=== PATIENT | male | born 1975 | race Caucasian/White ===

== ENCOUNTER 2017-06-19 13:37 | Emergency (ER) | payer BC, SELFPAY ==
[2017-06-19 13:39] VITALS: BP 130/90; PULSE 56; RESP 18; TEMP 36.6; O2SAT 100; BMI 26.8
--- NOTE | 2017-06-19 14:59 | EKG12_ITS ---
Test Reason : HEADACHE Blood Pressure : / mmHG Vent. Rate : 053 BPM Atrial Rate : 053 BPM P-R Int : 216 ms QRS Dur : 098 ms QT Int : 434 ms P-R-T Axes : 058 039 057 degrees QTc Int : 407 ms Sinus bradycardia with marked sinus arrhythmia with 1st degree A-V block Otherwise normal ECG Confirmed by PALMIRA CROWLEY, LISA ([id number]), map editor LAW LUKE ([id number]) on 06/23/2017 2:11:16 PM Referred By: MIRELA Confirmed By:LISA CHAVIS MD
--- NOTE | 2017-06-19 15:00 | RAD_ITS ---
STUDY: X-RAY CHEST REASON FOR EXAM: Male, 42 years old. Vertigo and chest pain. TECHNIQUE: PA and lateral views of the chest. COMPARISON: Comparison is made with prior study dated November 11, 2014. FINDINGS: EKG electrodes are seen. The lungs are clear and expanded. There is no demonstrated pleural abnormality. Normal size heart. Normal mediastinum and nixon. Normal visualized pulmonary arteries. Normal visualized aortic arch and descending thoracic aorta. Normal visualized thoracic spine. Normal visualized ribs, clavicles, and shoulders. There is no demonstrated abnormality of the visualized soft tissue structures of the upper abdomen. RAD/Chest PA and Lateral IMPRESSION: Normal x-ray examination of the chest. Electronically Signed: Abebe Antoine MD at 15:43 EDT Tel [phone], Service support ,
--- NOTE | 2017-06-19 15:00 | CT_ITS ---
STUDY: CT BRAIN WITHOUT CONTRAST REASON FOR EXAM: Male, 42 years old. Intermittent headaches. Vertigo and diplopia. RADIATION DOSAGE (If Supplied By Facility): CTDIvol = ( 44.99 ) mGy, DLP = ( 812.98 ) mGycm TECHNIQUE: Transaxial CT imaging of the brain was performed without administration of intravenous contrast material. Individualized dose optimization techniques were used for this CT. COMPARISON: Comparison is made with prior study dated September 19, 2011. FINDINGS: Normal soft tissue structures. Normal calvarium. Normal size ventricles and extra-axial spaces for the patient's age. Normal white matter tracts of the cerebral hemispheres. Normal basal ganglia and thalami. Normal brainstem. Normal cerebellum. There is no intracranial hemorrhage. There are no findings of an acute ischemic infarction. Mucosal polyp or retention cyst at the base of the left maxillary sinus. CT/Brain/Head without Contrast IMPRESSION: Normal unenhanced CT scan of the brain. Electronically Signed: Abebe Antoine MD at 15:40 EDT Tel [phone], Service support ,
--- NOTE | 2017-06-19 15:01 | ED.VIS.GEN ---
History of Present Illness <Terrell Gibsono - Last Filed: 06/19/17 21:07> Informant: Patient Onset: Days - 2 Context: Gradual Onset Quality: feels like movement, like room is diagonal Location: head Current Severity: Mild Maximum Severity: Moderate Worsened by: being upright and ambulatory Relieved by: sitting at rest Associated Symptoms: numbness R side of face, including forehead; intermittent ESCALONA; fatigue Narrative: Patient has never had these symptoms before. He also complains that he is having diplopia. He denies any eye pain or loss of vision. No recent cold/URI. No ear pain, decreased hearing, or tinnitus. No recent head injuries. He travels a lot, recently had a trip to and from [place] and [place]. Denies any focal lower extremity pain or swelling, no history of a DVT or PE, but as he was lying in the ED for examiner to enter the room, he started having central chest throbbing that he has not had in the last few days. He denies any dyspnea. Taking a deep breath makes it a little worse. It does not radiate. Feeling a little disoriented last couple days and foggy in head. <Francesco Cartwright - Last Filed: 06/21/17 08:10> Chief Complaint: General Illness Past Medical History <GibsonCornelius - Last Filed: 06/19/17 21:07> Surgical History: - - GERD Smoking Status: Never smoker Alcohol: None Drugs: None <Francesco Cartwright - Last Filed: 06/21/17 08:10> - Allergies and Home Meds Allergies/Adverse Reactions: Allergies No Known Allergies Allergy (Verified 06/19/17 13:38) Home Medications: Home Medications Medication Instructions Recorded Lansoprazole [Prevacid] 30 mg PO DAILY 12/27/13 Meclizine HCl 25 mg PO Q8H PRN #16 tab 06/19/17 Primary Care Physician: Nya Acevedo MD [Primary Care Provider] - Jake Nobles MD [STAFF PHYSICIAN] - 1 Week if not improving Review of Systems All systems negative except as indicated General: Reports: Malaise. Denies: Fever, Sweats Eyes: Reports: Diplopia ENT: Denies: Bilateral ear pain, Rhinorrhea, Sore throat Cardiovascular: Reports: Chest pain. Denies: Palpitations, Heart racing Respiratory: Denies: Dyspnea, Cough Gastrointestinal: Denies: Abdominal pain, Nausea, Vomiting Skin: Denies: Rash Neurological: Reports: Headache - off and on mild pressure ESCALONA, Numbness, - - no trouble speaking or understanding others. feeling disoriented in past 2 days as well.. Denies: Weakness <Francesco Cartwright - Last Filed: 06/21/17 08:10> Physical Exam Vital Signs/Narrative: Vital Signs Pulse Resp Pulse Ox 06/19/17 18:11 71 16 99 <ArthurCornelius - Last Filed: 06/19/17 21:07> Vital Signs/Narrative: Vital Signs Temp Pulse Resp BP Pulse Ox 06/19/17 13:39 97.9 F 56 L 18 130/90 H 100 General: Well nourished, Well developed, - - well-appearing nad Head: Normocephalic, Atraumatic Eyes: Perrl, EOMI - w/o nystagmus ENT: Moist mucous membranes, No rhinorrhea, TM's clear Neck: Supple, Nontender, No lymphadenopathy, No JVD Cardiovascular: Regular rate, Regular rhythm, No murmurs Respiratory: No distress, CTA bilaterally, Chest nontender Abdomen: Soft, Nontender, Nondistended, Normal bowel sounds Back: Nontender, Normal Inspection Extremities: Nontender, No edema Skin: Normal color, No rash Neurological: Alert, Oriented x3, Cranial nerves II-XII grossly intact - except sensory exam -- see below, Normal Strength, Normal DTR - toes downgoing bilaterally. no clonus., Normal Gait, - - normal FTN and HTS bilaterally.. Negative for: Normal Sensation - subjectively decreased sensation on right side of face, all 3 divisions of trigem nerve regions. grossly, sensation is intact., Left side facial droop, Right side facial droop Psychological: Normal affect <Francesco Cartwright - Last Filed: 06/21/17 08:10> Diagnostic/Tx/Re-eval - Medical Decision Making MRI of the brain was interpreted by radiologist as normal. Based on discussion Dr. Parker had with neurology if MRI negative he may be discharged to home to follow-up as an outpatient. <ArthurCornelius - Last Filed: 06/19/17 21:07> Chest X-Ray - ED: 2 View, Read by ED Physician Impressions Brain CT 06/19/17 15:00 IMPRESSION: Normal unenhanced CT scan of the brain. Electronically Signed: Abebe Antoine MD at 15:40 EDT Tel [phone], Service support , Chest X-Ray 06/19/17 15:00 IMPRESSION: Normal x-ray examination of the chest. Electronically Signed: Abebe Antoine MD at 15:43 EDT Tel [phone], Service support , Chest CTA 06/19/17 16:29 IMPRESSION: Normal CTA chest examination, without a demonstrated pulmonary embolism or arterial dissection. Electronically Signed: Piero Ren MD at 17:41 EDT , Service support , 06/19/17 15:00 Brain/Head without Contrast [CT] Stat Chest PA and Lateral [RAD] Stat 06/19/17 16:29 CTA Chest W/WO Contrast [CT] Stat Laboratory Results 06/19/17 06/19/17 06/19/17 Range/Units 15:15 15:15 15:15 WBC 8.6 (4.4-11.0) K/mm3 RBC 5.27 (4.6-6.2) M/mm3 Hgb 16.1 (13.0-16.5) g/dl Hct 45.7 (40-54) % MCV 86.7 (80-94) fL MCH 30.6 (27.0-32.0) pg MCHC 35.2 (32-36) g/gl RDW 13.5 (11.6-14.6) % RDW Differential 42.9 (35.1-43.9) fl Plt Count 314 (150-450) K/mm3 MPV 9.4 (6.2-12.0) fl Immature Gran % (Auto) 0.200 (0.0-0.9) % Neut % (Auto) 65.5 (47-70) % Lymph % (Auto) 22.9 (19-41) % [place] % (Auto) 8.0 (0-10) % Eos % (Auto) 2.8 (0-5) % Baso % (Auto) 0.6 (0-1) % Absolute Neuts (auto) 5.6 (2.0-7.7) X10^3/uL Absolute Lymphs (auto) 1.97 (0.83-4.51) X10^3/ul Total Counted Not Reportable D-Dimer Quant (PE/DVT) 0.73 H* (0.27-0.49) FEU/ug/m Sodium 137 (136-145) mmol/L Potassium 3.8 (3.5-5.1) mmol/L Chloride 104 (98-107) mmol/L Carbon Dioxide 28.0 (21.0-32.0) mmol/L Anion Gap 5 (5-15) BUN 16 (7-18) mg/dL Creatinine 1.03 (0.70-1.30) mg/dL Estim Creat Clear Calc 107.74 ml/min Est GFR (MDRD) Af Amer 103 (>60) mL/min Est GFR (MDRD) Non-Af 85 (>60) mL/min BUN/Creatinine Ratio 15.5 (10-20) RATIO Glucose 91 (74-106) mg/dL Calcium 9.1 (8.5-10.1) mg/dL Troponin I < 0.015 (<0.045) ng/mL - Rhythm Strip Rhythm Strip: Sinus Rhythm Rate: 55 Ectopy: None - EKG 1 Interpretation: Sinus Rhythm - 53, No Acute Injury Pattern - normal axis, normal EKG - Medical Decision Making Prior to getting any medications, his chest discomfort is resolved. He states he rested/napped, and his head symptoms are a little better also, but still present. His d-dimer is elevated; CTA chest performed and negative for PE or other acute abnormality. Meclizine and IVFB given. On reevaluation, he states the symptoms are significantly better. Discussed w/ Neurology, who recommends MRI brain w/o contrast, to make sure he is not having a brainstem ischemic event. If negative, d/c home w/ close outpatient follow up would be appropriate. Discussed w/ pt and MRI, who is still here and able to perform a STAT exam, which is ordered. Checked out to oncoming ED physician for MRI results and discussed w/ pt, who is comfortable w/ this plan. <Francesco Cartwright - Last Filed: 06/21/17 08:10> Disposition: Home <Cornelius Gibson - Last Filed: 06/19/17 21:07> ED Disposition <Cornelius Gibson - Last Filed: 06/19/17 21:07> <Francesco Cartwright - Last Filed: 06/21/17 08:10> - Plan for ED Patient: Disposition: Home or Assisted Living Chief Complaint: General Illness Diagnosis: Vertigo, Numbness and tingling of right face, Chest pain, unspecified Instructions: ED Vertigo Unspecified Prescriptions: Meclizine HCl 25 mg PO Q8H PRN #16 tab PRN Reason: Vertigo Referrals: Nya Acevedo MD [Primary Care Provider] - Jake Nobles MD [STAFF PHYSICIAN] - 1 Week if not improving
--- NOTE | 2017-06-19 15:11 | ED.DCSUM_ITS ---
History of Present Illness <Terrell Gibsono - Last Filed: 06/19/17 21:07> Informant: Patient Onset: Days - 2 Context: Gradual Onset Quality: feels like movement, like room is diagonal Location: head Current Severity: Mild Maximum Severity: Moderate Worsened by: being upright and ambulatory Relieved by: sitting at rest Associated Symptoms: numbness R side of face, including forehead; intermittent ESCALONA; fatigue Narrative: Patient has never had these symptoms before. He also complains that he is having diplopia. He denies any eye pain or loss of vision. No recent cold/ URI. No ear pain, decreased hearing, or tinnitus. No recent head injuries. He travels a lot, recently had a trip to and from [place] and [place]. Denies any focal lower extremity pain or swelling, no history of a DVT or PE, but as he was lying in the ED for examiner to enter the room, he started having central chest throbbing that he has not had in the last few days. He denies any dyspnea. Taking a deep breath makes it a little worse. It does not radiate. Feeling a little disoriented last couple days and foggy in head. <Francesco Cartwright - Last Filed: 06/21/17 08:10> Chief Complaint: General Illness Past Medical History <GibsonCornelius - Last Filed: 06/19/17 21:07> Surgical History: - - GERD Smoking Status: Never smoker Alcohol: None Drugs: None <Francesco Cartwright - Last Filed: 06/21/17 08:10> - Allergies and Home Meds Allergies/Adverse Reactions: Allergies No Known Allergies Allergy (Verified 06/19/17 13:38) Home Medications: Home Medications Medication Instructions Recorded Lansoprazole [Prevacid] 30 mg PO DAILY 12/27/13 Meclizine HCl 25 mg PO Q8H PRN #16 tab 06/19/17 Primary Care Physician: Nya Acevedo MD [Primary Care Provider] - Jake Nobles MD [STAFF PHYSICIAN] - 1 Week if not improving Review of Systems All systems negative except as indicated General: Reports: Malaise. Denies: Fever, Sweats Eyes: Reports: Diplopia ENT: Denies: Bilateral ear pain, Rhinorrhea, Sore throat Cardiovascular: Reports: Chest pain. Denies: Palpitations, Heart racing Respiratory: Denies: Dyspnea, Cough Gastrointestinal: Denies: Abdominal pain, Nausea, Vomiting Skin: Denies: Rash Neurological: Reports: Headache - off and on mild pressure ESCALONA, Numbness, - - no trouble speaking or understanding others. feeling disoriented in past 2 days as well.. Denies: Weakness <Francesco Cartwright - Last Filed: 06/21/17 08:10> Physical Exam Vital Signs/Narrative: Vital Signs Pulse Resp Pulse Ox 06/19/17 18:11 71 16 99 <ArthurCornelius - Last Filed: 06/19/17 21:07> Vital Signs/Narrative: Vital Signs Temp Pulse Resp BP Pulse Ox 06/19/17 13:39 97.9 F 56 L 18 130/90 H 100 General: Well nourished, Well developed, - - well-appearing nad Head: Normocephalic, Atraumatic Eyes: Perrl, EOMI - w/o nystagmus ENT: Moist mucous membranes, No rhinorrhea, TM's clear Neck: Supple, Nontender, No lymphadenopathy, No JVD Cardiovascular: Regular rate, Regular rhythm, No murmurs Respiratory: No distress, CTA bilaterally, Chest nontender Abdomen: Soft, Nontender, Nondistended, Normal bowel sounds Back: Nontender, Normal Inspection Extremities: Nontender, No edema Skin: Normal color, No rash Neurological: Alert, Oriented x3, Cranial nerves II-XII grossly intact - except sensory exam -- see below, Normal Strength, Normal DTR - toes downgoing bilaterally. no clonus., Normal Gait, - - normal FTN and HTS bilaterally.. Negative for: Normal Sensation - subjectively decreased sensation on right side of face, all 3 divisions of trigem nerve regions. grossly, sensation is intact. , Left side facial droop, Right side facial droop Psychological: Normal affect <Francesco Cartwright - Last Filed: 06/21/17 08:10> Diagnostic/Tx/Re-eval - Medical Decision Making MRI of the brain was interpreted by radiologist as normal. Based on discussion Dr. Parker had with neurology if MRI negative he may be discharged to home to follow-up as an outpatient. <ArthurCornelius - Last Filed: 06/19/17 21:07> Chest X-Ray - ED: 2 View, Read by ED Physician Impressions Brain CT 06/19/17 15:00 IMPRESSION: Normal unenhanced CT scan of the brain. Electronically Signed: Abebe Antoine MD at 15:40 EDT Tel [phone], Service support , Chest X-Ray 06/19/17 15:00 IMPRESSION: Normal x-ray examination of the chest. Electronically Signed: Abebe Antoine MD at 15:43 EDT Tel [phone], Service support , Chest CTA 06/19/17 16:29 IMPRESSION: Normal CTA chest examination, without a demonstrated pulmonary embolism or arterial dissection. Electronically Signed: Piero Ren MD at 17:41 EDT , Service support , 06/19/17 15:00 Brain/Head without Contrast [CT] Stat Chest PA and Lateral [RAD] Stat 06/19/17 16:29 CTA Chest W/WO Contrast [CT] Stat Laboratory Results 06/19/17 06/19/17 06/19/17 Range/Units 15:15 15:15 15:15 WBC 8.6 (4.4-11.0) K/mm3 RBC 5.27 (4.6-6.2) M/mm3 Hgb 16.1 (13.0-16.5) g/dl Hct 45.7 (40-54) % MCV 86.7 (80-94) fL MCH 30.6 (27.0-32.0) pg MCHC 35.2 (32-36) g/gl RDW 13.5 (11.6-14.6) % RDW Differential 42.9 (35.1-43.9) fl Plt Count 314 (150-450) K/mm3 MPV 9.4 (6.2-12.0) fl Immature Gran % (Auto) 0.200 (0.0-0.9) % Neut % (Auto) 65.5 (47-70) % Lymph % (Auto) 22.9 (19-41) % [place] % (Auto) 8.0 (0-10) % Eos % (Auto) 2.8 (0-5) % Baso % (Auto) 0.6 (0-1) % Absolute Neuts (auto) 5.6 (2.0-7.7) X10^3/uL Absolute Lymphs (auto) 1.97 (0.83-4.51) X10^3/ul Total Counted Not Reportable D-Dimer Quant (PE/DVT) 0.73 H* (0.27-0.49) FEU/ug/m Sodium 137 (136-145) mmol/L Potassium 3.8 (3.5-5.1) mmol/L Chloride 104 (98-107) mmol/L Carbon Dioxide 28.0 (21.0-32.0) mmol/L Anion Gap 5 (5-15) BUN 16 (7-18) mg/dL Creatinine 1.03 (0.70-1.30) mg/dL Estim Creat Clear Calc 107.74 ml/min Est GFR (MDRD) Af Amer 103 (>60) mL/min Est GFR (MDRD) Non-Af 85 (>60) mL/min BUN/Creatinine Ratio 15.5 (10-20) RATIO Glucose 91 (74-106) mg/dL Calcium 9.1 (8.5-10.1) mg/dL Troponin I < 0.015 (<0.045) ng/mL - Rhythm Strip Rhythm Strip: Sinus Rhythm Rate: 55 Ectopy: None - EKG 1 Interpretation: Sinus Rhythm - 53, No Acute Injury Pattern - normal axis, normal EKG - Medical Decision Making Prior to getting any medications, his chest discomfort is resolved. He states he rested/napped, and his head symptoms are a little better also, but still present. His d-dimer is elevated; CTA chest performed and negative for PE or other acute abnormality. Meclizine and IVFB given. On reevaluation, he states the symptoms are significantly better. Discussed w/ Neurology, who recommends MRI brain w/o contrast, to make sure he is not having a brainstem ischemic event. If negative, d/c home w/ close outpatient follow up would be appropriate. Discussed w/ pt and MRI, who is still here and able to perform a STAT exam, which is ordered. Checked out to oncoming ED physician for MRI results and discussed w/ pt, who is comfortable w/ this plan. <Francesco Cartwright - Last Filed: 06/21/17 08:10> Disposition: Home <Cornelius Gibson - Last Filed: 06/19/17 21:07> ED Disposition <Cornelius Gibson - Last Filed: 06/19/17 21:07> <Francesco Cartwright - Last Filed: 06/21/17 08:10> - Plan for ED Patient: Disposition: Home or Assisted Living Chief Complaint: General Illness Diagnosis: Vertigo, Numbness and tingling of right face, Chest pain, unspecified Instructions: ED Vertigo Unspecified Prescriptions: Meclizine HCl 25 mg PO Q8H PRN #16 tab PRN Reason: Vertigo Referrals: Nya Acevedo MD [Primary Care Provider] - Jake Nobles MD [STAFF PHYSICIAN] - 1 Week if not improving
[2017-06-19 15:23] VITALS: PULSE 57
[2017-06-19 15:25] LABS: Absolute Lymphocyte Count 1.97 X10^3/ul (0.83-4.51); Absolute Neutrophil Count 5.6 X10^3/uL (2.0-7.7); Basophil# 0.05 X10^3/uL; Basophil% 0.6 % (0-1); Eosinophil# 0.24 X10^3/uL; Eosinophils% 2.8 % (0-5); Hematocrit 45.7 % (40-54); Hemoglobin 16.1 g/dl (13.0-16.5); Lymphocyte # 1.97 X10^3/ul (4.0); Lymphocyte % 22.9 % (19-41); Mean Corp Hgb Conc 35.2 g/gl (32-36); Mean Corpuscular Hgb 30.6 pg (27.0-32.0); Mean Corpuscular Volume 86.7 fL (80-94); Mean Platelet Vol. 9.4 fl (6.2-12.0); Monocyte# 0.69 X10^3/uL; Neutrophil # 5.62 X10^3/uL (2.7-7.7); Neutrophil % 65.5 % (47-70); Platelet Count 314 K/mm3 (150-450); RBC Distribution Width CV 13.5 % (11.6-14.6); RBC Distribution Width SD 42.9 fl (35.1-43.9); Red Blood Count 5.27 M/mm3 (4.6-6.2); White Blood Count 8.6 K/mm3 (4.4-11.0)
[2017-06-19 15:28] LABS: POSITIVE COUNT NO; POSITIVE DIFFERENTIAL NO; POSITIVE MORPHOLOGY NO
[2017-06-19 15:39] LABS: Anion Gap 5 (5-15); BUN 16 mg/dL (7-18); BUN/Creat Ratio 15.5 RATIO (10-20); Calcium,Total 9.1 mg/dL (8.5-10.1); Chloride 104 mmol/L (98-107); Creatinine, Serum 1.03 mg/dL (0.70-1.30); EST Glomerular Filtration Rate 85 mL/min (>60); Est Glom Filt Rate - Afr Amer 103 mL/min (>60); Estimated Creatinine Clearance 107.74 ml/min; Glucose 91 mg/dL (74-106); Potassium 3.8 mmol/L (3.5-5.1); Sodium Level 137 mmol/L (136-145)
[2017-06-19 15:48] LABS: D-Dimer Quantitative (DVT/PE) 0.73 FEU/ug/m (0.27-0.49)
[2017-06-19 15:56] VITALS: BMI 26.8
--- NOTE | 2017-06-19 16:29 | CT_ITS ---
STUDY: CTA CHEST REASON FOR EXAM: Male, 42 years old. Chest pain. Elevated d-dimer. RADIATION DOSAGE (If Supplied By Facility): CTDIvol = ( 38.46 ) mGy, DLP = ( 625.78 ) mGycm TECHNIQUE: The examination was performed with the intravenous administration of 100 ml of Isovue 300 contrast material. Post-processing of the angiographic images was performed, with multiplanar reformation and 3D reconstruction. Individualized dose optimization techniques were used for this CT. COMPARISON: None. FINDINGS: Normal enhancement of the main pulmonary artery and right and left pulmonary arteries. Normal enhancement of the bilateral peripheral pulmonary arteries. There is no demonstrated pulmonary embolism. Normal thoracic aorta and visualized great vessels. There is no demonstrated aortic dissection. Normal heart and pericardium. Normal mediastinum. Normal hilar regions. Normal visualized trachea and bronchi. The lungs are well expanded. Normal pulmonary parenchyma. Normal pleura. Normal chest wall structures. Normal osseous structures. Normal visualized upper abdomen. CT/CTA Chest W/WO Contrast IMPRESSION: Normal CTA chest examination, without a demonstrated pulmonary embolism or arterial dissection. Electronically Signed: Piero Ren MD at 17:41 EDT , Service support ,
[2017-06-19] MEDS: Meclizine HCl 25 MG Tablet PO (17:06)
[2017-06-19 18:11] VITALS: PULSE 71; RESP 16; O2SAT 99
--- NOTE | 2017-06-19 18:28 | MRI_ITS ---
STUDY: MRI BRAIN WITHOUT CONTRAST REASON FOR EXAM: Male, 42 years old. Right facial numbness and vertigo TECHNIQUE: Standardized multiplanar fat and water weighted pulse sequences were obtained. COMPARISON: CT the brain on June 19, 2017 FINDINGS: Normal size of the ventricles and extra-axial spaces for the patient's age. Normal white matter tracts of the supratentorial brain. Normal bilateral basal ganglia. Normal thalami. There is no extra-axial fluid accumulation. Normal flow voids within the major intracranial circulation suggesting patency by spin echo criteria. Normal sella turcica, pituitary gland, infundibular stalk, optic chiasm and hypothalamus. Normal tectal plate and pineal gland. Normal midbrain, nimo and medulla. Normal cerebellum. Normal basal cisterns. Normal bilateral temporal bones. Normal bilateral internal auditory canals. No demonstrated orbital abnormality, within the constraints of a routine brain study. Polypoid mucosal thickening within left maxillary sinus.. Normal calvarium and skull base. Normal visualized soft tissue structures. Normal visualized upper cervical spine. MRI/Brain without Contrast IMPRESSION: Normal unenhanced MRI of the brain. Left maxillary sinusitis Electronically Signed: Rudy Kirby MD at 19:50 EDT , Service support ,
[2017-06-19 20:10] VITALS: BP 128/77; PULSE 62
[2017-06-19 21:16] VITALS: BP 125/78; PULSE 57; RESP 18; O2SAT 98
== END 2017-06-19 21:27 | disposition home or self-care (01) ==
PROVIDERS: Emergency Provider Emergency Medicine; Family Provider Internal Medicine; PCP Internal Medicine
DX: R42 Dizziness and giddiness (principal); R20.0 Anesthesia of skin; R07.9 Chest pain, unspecified; R20.2 Paresthesia of skin
CPT/HCPCS: 70450; 70551; 71046; 71275; 80048; 84484; 85025; 85379; 93005; 96360; 96361; 99285; J7030; J7050; Q9967; A4216

== ENCOUNTER 2018-06-19 13:47 | Inpatient (IN) | payer BC, SELFPAY ==
[2018-06-19 13:48] VITALS: BP 122/88; PULSE 101; RESP 18; TEMP 36.3; O2SAT 100; BMI 24.2
--- NOTE | 2018-06-19 14:41 | ED.DCSUM_ITS ---
- ER Visit Summary Date of Service: 06/19/18 Chief Complaint: Periumbilical abdominal pain with nausea and vomiting History of Present Illness: The patient is a 43 M past medical history of reflux and prior appendectomy. Patient states this morning he started getting epigastric periumbilical abdominal pain with nausea vomiting. No hematemesis. No melena. No diarrhea. No dysuria. Recently normal bowel movements. No fever. No abdominal trauma. No history of prior pancreatitis or bowel obstructions. Denies any back pain. Physical Examination: Middle-aged male vital signs stable afebrile. H EENT exam unremarkable. Moist with memories. Neck nontender no lymphadenopathy. Lungs clear to auscultation bilaterally. Heart regular rhythm no murmur. Abdomen is soft. Periumbilical and epigastric tenderness. No rebound, guarding or rigidity. Nondistended. No signs of obstruction. Right upper right lower quadrant unremarkable. No Patten sign no McBurney's point tenderness. No hernias or masses. Patient is moving all 4 extremities. Neurovascular intact. No edema. Nontender. Back exam nontender. Neurologically is awake alert with no focal motor or sensory deficits. Test Results: CB C shows a white count of 14. Hemoglobin is 16. No bands. Chemistries unremarkable creatinine 1.3. Liver enzymes normal. Lipase is elevated at 18,561 consistent with acute pancreatitis. CT abdomen pelvis is pending. Emergency Department Course and Treatment: Patient treated with IV fluids. Morphine and Zofran. Repeat exam is feeling and looks much better. Will be given a second dose of morphine. I discussed all test results of both he and his . He will be admitted. Treatment Plan: Admission. Disposition: Admission Impression: Acute abdominal pain secondary to acute pancreatitis This note was generated with [employer] software. It may contain incorrect words, spelling, and punctuation that were not noted in review of the chart prior to signing ED Disposition - Plan for ED Patient: Referrals: Nya Acevedo MD [STAFF PHYSICIAN] -
[2018-06-19] MEDS: Ondansetron 4 MG/2 ML Vial IV (14:44)
[2018-06-19] MEDS: 0.9% Normal Saline 1,000 ML 1000 ML IV (14:44)
[2018-06-19] MEDS: Morphine 4 MG/ML Syringe 6 MG IV (14:46)
[2018-06-19 14:55] LABS: Absolute Lymphocyte Count 1.04 X10^3/ul (0.83-4.51); Absolute Neutrophil Count 12.8 X10^3/uL (2.0-7.7); Basophil# 0.01 X10^3/uL; Basophil% 0.1 % (0-1); Eosinophil# 0.04 X10^3/uL; Eosinophils% 0.3 % (0-5); Hematocrit 47.2 % (40-54); Hemoglobin 16.8 g/dl (13.0-16.5); Lymphocyte # 1.04 X10^3/ul (4.0); Lymphocyte % 7.2 % (19-41); Mean Corp Hgb Conc 35.6 g/gl (32-36); Mean Corpuscular Hgb 30.8 pg (27.0-32.0); Mean Corpuscular Volume 86.6 fL (80-94); Mean Platelet Vol. 9.6 fl (6.2-12.0); Monocyte# 0.53 X10^3/uL; Monocyte% 3.7 % (0-10); Neutrophil # 12.76 X10^3/uL (2.7-7.7); Neutrophil % 88.5 % (47-70); POSITIVE COUNT NO; POSITIVE DIFFERENTIAL NO; POSITIVE MORPHOLOGY NO; Platelet Count 304 K/mm3 (150-450); RBC Distribution Width CV 13.4 % (11.6-14.6); RBC Distribution Width SD 42.4 fl (35.1-43.9); Red Blood Count 5.45 M/mm3 (4.6-6.2); White Blood Count 14.4 K/mm3 (4.4-11.0)
--- NOTE | 2018-06-19 15:09 | ED.RN ---
LAB RESULTED LIPASE 18,561, PHYSICIAN NOTIFIED
[2018-06-19 15:10] LABS: AST(SGOT) 15 U/L (15-37); Alanine Aminotransfer ALT/SGPT 17 U/L (16-61); Albumin, Serum 4.2 g/dL (3.2-5.0); Alkaline Phosphatase 79 U/L (45-117); Anion Gap 8 (5-15); BUN 18 mg/dL (7-18); BUN/Creat Ratio 13.8 RATIO (10-20); Bilirubin, Direct 0.14 mg/dL (0.00-0.30); Calcium,Total 9.2 mg/dL (8.5-10.1); Chloride 105 mmol/L (98-107); EST Glomerular Filtration Rate 65 mL/min (>60); Est Glom Filt Rate - Afr Amer 78 mL/min (>60); Estimated Creatinine Clearance 91.81 ml/min; Globulin 4.6 g/dL (2.2-4.2); Glucose 122 mg/dL (74-106); Lipase 18561 U/L (73-393); Potassium 3.6 mmol/L (3.5-5.1); Protein, Total 8.8 g/dL (6.4-8.2); Sodium Level 138 mmol/L (136-145)
--- NOTE | 2018-06-19 15:17 | CT_ITS ---
STUDY: CT ABDOMEN AND PELVIS WITH CONTRAST REASON FOR EXAM: Male, 43 years old. Pancreatitis. RADIATION DOSAGE (If Supplied By Facility): CTDIvol = ( 15.56 ) mGy, DLP = ( 986.32 ) mGycm TECHNIQUE: Transaxial images were obtained from the dome of the diaphragm to the symphysis pubis without oral contrast. 100ML IV Isovue 300 was administered. Sagittal and coronal images were reconstructed. Individualized dose optimization techniques were used for this CT. COMPARISON: None. FINDINGS: The visualized lung bases are unremarkable. The visualized portions of the heart are within normal limits. There is hepatomegaly with diffuse hepatic enlargement. Normal gallbladder and extrahepatic biliary system. Normal spleen. There is diffuse enlargement of the pancreas with milagros-pancreatic edema suggesting acute pancreatitis. Normal bilateral adrenal glands. Normal right kidney. Normal left kidney. There is a small hiatal hernia. There is ulcer or diverticulum of the duodenum, series 2 image 41/134. No dilated small intestine. Normal colon. There are surgical clips in the region of the appendix consistent with a prior appendectomy. Normal abdominal aorta. Normal inferior vena cava. Normal retroperitoneum. Normal urinary bladder. Normal abdominal wall. There are diffuse degenerative changes of the visualized lumbar spine. CT/Abdomen/Pelvis W IV Cont ONLY IMPRESSION: Acute pancreatitis. No fluid collection or pseudocyst. Ulcer or diverticulum of the duodenum. Small hiatal hernia. Hepatomegaly. No biliary dilatation. Electronically Signed: Francesco Vera MD at 16:22 EDT , Service support ,
[2018-06-19] MEDS: morphine 8 MG/ML Syringe 6 MG IV (15:40)
--- NOTE | 2018-06-19 15:53 | PCM.HP.STD ---
Problem List (1) Acute pancreatitis Status: Acute (2) Gastroesophageal reflux disease Status: Chronic History of Present Illness Date of Admission: 06/19/18 Chief Complaint: Abdominal pain. The patient is a 43 year old M with past medical history as mentioned above presented to the emergency department because of abdominal pain. His illness started yesterday after he felt sick yesterday evening, had some vague abdominal pain and then resolved. Today, he went to work and he started having abdominal pain, epigastric and periumbilical in location, described as ache, 8 out of 10 in severity, not radiating, associated with nausea and vomiting and without aggravating or relieving factors. He threw up 4-5 times at work, went home and his pain got worse and he decided to come to the emergency department. He denies fever or chills. He admitted that he has been drinking alcohol and at least 2 or 3 times a week and this last drink was Monday. He denied right upper quadrant abdominal pain. In the emergency department, he was slightly tachycardic, other vital signs were stable. His routine blood work was remarkable for leukocytosis and hemoglobin of 16.8 g/dL indicating hemoconcentration, otherwise unremarkable. LFT was normal. Lipase was 18,561. CT scan abdomen and pelvis ordered and it is pending. He is being admitted for acute pancreatitis likely alcoholic. Past Medical History Past Medical History (Chronic Problems): Chronic Problems Gastroesophageal reflux disease (Chronic) Allergies No Known Allergies Allergy (Verified 06/19/18 13:49) Home Medications: Ambulatory Orders Medication Instructions Recorded Lansoprazole [Prevacid] 30 mg PO DAILY 06/19/18 Ranitidine [Zantac] 150 mg PO DAILY 06/19/18 Surgical History: appendectomy, - Psychiatric History: No pertinent psych hx Lives: Spouse/ Significant Other Smoking Status: Never smoker Alcohol: Sober Drugs: None - *Family History Maternal History Items: Cancer, Diabetes, - - because of bone cancer. Paternal History Items: Diabetes Review of Systems Constitutional: Denies: Anorexia, Chills, Fever, Weakness Eyes: Denies: Blurred vision, Double vision, Drainage, Redness HEENT: Denies: Difficulty Hearing, Ear Pain, Eye Pain, Nasal Congestion, Sore Throat Cardiovascular: Denies: Chest Pain, Chest Pressure, Chest Tightness, Heaviness, Light Headedness, Orthopnea, Syncope Respiratory: Denies: Cough, Pleuritic Pain, Shortness of Breath, Sputum production, Wheezing Gastrointestinal: Reports: Abdominal Pain, Nausea, Vomiting. Denies: Constipation, Diarrhea, Hematochezia, Melena Genitourinary: Denies: Dysuria, Frequency, Hematuria Musculoskeletal: Denies: Arm Pain, Back Pain, Foot Pain Skin: Denies: Dryness, Rash Neurological: Denies: Balance problems, Blurred vision, Double vision, Change in Speech, Confusion, Headaches, Incoordination, Numbness Psychiatric: Denies: Anxiety, Depression Endocrine: Denies: Change in Body Habitus, Polydipsia VTE Information - Inpt Only VTE Present on Admission: No VTE Mechan Device Prophylaxis: None VTE Pharm Prophylaxis ordered?: Yes Patient Problems: Active and Suspected Problems Acute pancreatitis (Acute) - Physical Exam General: Alert, Oriented x3, Cooperative, No apparent distress HEENT: Atraumatic, PERRLA, EOMI, Normocephalic Oral: Moist Mucosa, No Gingival or Mucosal Lesions/ Ulcerations Neck: Supple, No JVD, Negative Carotid Bruits, Trachea Midline, Thyroid Normal Size and Texture Lungs: Clear to auscultation, Normal air movement, No rhonchi, No wheeze, No rales Cardiovascular: Regular rate, Regular Rhythm, Normal S1, Normal S2, PMI Normal Abdomen: Bowel Sounds Present, Soft, Non-Distended, No Hepato-splenomegaly, Tender - Epigastric tenderness, no guarding or rigidity. Extremities: No clubbing, No cyanosis, No edema Skin: No rashes, No breakdown Lymphatic: No Cervical, Supraclavicular, or Inguinal Adenopathy Neurological: Cranial nerves II-XII grossly intact, Motor Exam 5/5 strength throughout Psych/Mental Status: Normal Affect, Appropriate, Alert and oriented to time, place, person, mood and affect Vital Signs Temp Pulse Resp BP Pulse Ox 97.3 F L 101 H 18 122/88 H 100 06/19/18 13:48 06/19/18 13:48 06/19/18 13:48 06/19/18 13:48 06/19/18 13:48 Weight: 199 lb Body Mass Index (BMI) 24.2 Laboratory Tests Past 24 Hrs 06/19/18 06/19/18 14:25 14:25 WBC 14.4 H RBC 5.45 Hgb 16.8 H Hct 47.2 MCV 86.6 MCH 30.8 MCHC 35.6 RDW 13.4 RDW Differential 42.4 Plt Count 304 MPV 9.6 Immature Gran % (Auto) 0.200 Neut % (Auto) 88.5 H Lymph % (Auto) 7.2 L [place] % (Auto) 3.7 Eos % (Auto) 0.3 Baso % (Auto) 0.1 Absolute Neuts (auto) 12.8 H Absolute Lymphs (auto) 1.04 Total Counted Not Reportable Sodium 138 Potassium 3.6 Chloride 105 Carbon Dioxide 25.0 Anion Gap 8 BUN 18 Creatinine 1.30 Estim Creat Clear Calc 91.81 Est GFR (MDRD) Af Amer 78 Est GFR (MDRD) Non-Af 65 BUN/Creatinine Ratio 13.8 Glucose 122 H Calcium 9.2 Total Bilirubin 0.60 Direct Bilirubin 0.14 AST 15 ALT 17 Alkaline Phosphatase 79 Total Protein 8.8 H Albumin 4.2 Globulin 4.6 H Lipase 53465 H Clinical Impression(s) from Imaging Studies Abdomen/Pelvis CT 06/19/18 15:17 IMPRESSION: Acute pancreatitis. No fluid collection or pseudocyst. Ulcer or diverticulum of the duodenum. Small hiatal hernia. Hepatomegaly. No biliary dilatation. Electronically Signed: Francesco Vera MD at 16:22 EDT , Service support , Assessment/Plan All Active Problems Acute pancreatitis (Acute) This is a 43 years old male patient presented to the medicine because of abdominal pain with nausea and vomiting and he was found to have pancreatic lipase of more than 18,000 consistent with acute pancreatitis and he is being admitted for treatment. #1 acute pancreatitis: Probably alcoholic pancreatitis. Patient admitted drinking at least 3 times a week. His LFT was normal, denied any right upper quadrant abdominal pain. Vital signs are stable. CT scan abdomen and pelvis with IV contrast revealed diffuse enlargement of the pancreas with peripancreatic edema consistent with acute pancreatitis. No biliary dilatation, no hepatomegaly. Plan: Admit to MedSurg floor, cardiac monitoring, keep on n.p.o., IV fluids, IV morphine PRN, IV antiemetics as needed, IV Protonix, repeat CBC, CMP and lipase tomorrow morning. #2 GERD: Start IV Protonix as above. #3 DVT prophylaxis: Subcu Lovenox. This note was generated with [employer] dictation software. It may contain incorrect words, spelling, and punctuation that were not noted in checking the note before signing. Code Visit Inpatient E&M: 62600 Init Hosp L3
--- NOTE | 2018-06-19 16:11 | CASEMGMT ---
RN CM Assessment Introduced role of RN CM to patient and patient father at bedside.? Patient is alert, oriented and able?to participate in RN CM Assessment. ?Care providers, pharmacy, and demographics verified. Presentation: Abd Pain, N/V Admit Dx: Acute Pancreatitis Re-Admit: No Barriers/Issues: None, Drinks Alcohol, Denies Smoking. Denies questions/concerns. PCP: Viet Webb Specialists: None Preferred [facility]acy[facility] Insurance: [employer] Benefit: Yes? LNOK: Suki Anderson Living Arrangements: Lives with in a 2 story home, 2 steps to enter? ADL?s: Independent with ambulation and ADL's Transportation: Patient drives, to drive on [place] DME: None HHC: None SNF: None Goal: Home and does not think will have any needs DC PLAN: Home with no anticipated needs identified at this time. YONI Qureshi
[2018-06-19 16:25] VITALS: BMI 24.2
[2018-06-19 16:28] VITALS: BMI 25.9
[2018-06-19 16:41] VITALS: BP 124/82; PULSE 73; RESP 16; TEMP 36.9; O2SAT 99
[2018-06-19 17:25] VITALS: PULSE 93
[2018-06-19 20:54] VITALS: BP 122/80; PULSE 68; RESP 16; TEMP 36.8; O2SAT 98
[2018-06-19 21:59] VITALS: PULSE 67
[2018-06-19] MEDS: 0.9% Normal Saline 1,000 ML 150 ML IV (23:12)
[2018-06-19] MEDS: Morphine 2 MG/ML Syringe IV (23:19)
[2018-06-19] MEDS: 0.9% NaCl Peripheral Flush Adult/Peds IV (23:19)
[2018-06-20] VITALS (12 sets, daily range): BP systolic 97–130; BP diastolic 53–79; PULSE 56–98; RESP 16; TEMP 36.4–37.2; O2SAT 96–100
[2018-06-20] MEDS: 0.9% Normal Saline 1,000 ML 150 ML IV ×3 (05:33→20:27)
[2018-06-20 06:55] LABS: Absolute Lymphocyte Count 1.34 X10^3/ul (0.83-4.51); Absolute Neutrophil Count 6.7 X10^3/uL (2.0-7.7); Basophil# 0.02 X10^3/uL; Basophil% 0.2 % (0-1); Eosinophil# 0.12 X10^3/uL; Eosinophils% 1.4 % (0-5); Hematocrit 43.4 % (40-54); Hemoglobin 14.5 g/dl (13.0-16.5); Lymphocyte # 1.34 X10^3/ul (4.0); Lymphocyte % 15.3 % (19-41); Mean Corp Hgb Conc 33.4 g/gl (32-36); Mean Corpuscular Hgb 29.2 pg (27.0-32.0); Mean Corpuscular Volume 87.3 fL (80-94); Mean Platelet Vol. 9.7 fl (6.2-12.0); Monocyte# 0.61 X10^3/uL; Monocyte% 6.9 % (0-10); Neutrophil # 6.68 X10^3/uL (2.7-7.7); Neutrophil % 76.1 % (47-70); Platelet Count 264 K/mm3 (150-450); RBC Distribution Width CV 13.7 % (11.6-14.6); Red Blood Count 4.97 M/mm3 (4.6-6.2); White Blood Count 8.8 K/mm3 (4.4-11.0)
[2018-06-20 06:58] LABS: POSITIVE COUNT NO; POSITIVE DIFFERENTIAL NO; POSITIVE MORPHOLOGY NO
[2018-06-20 07:12] LABS: ALB/GLOB Ratio 0.8 RATIO (0.9-2.4); AST(SGOT) 12 U/L (15-37); Alanine Aminotransfer ALT/SGPT 13 U/L (16-61); Albumin, Serum 2.9 g/dL (3.2-5.0); Alkaline Phosphatase 57 U/L (45-117); Anion Gap 7 (5-15); BUN 14 mg/dL (7-18); BUN/Creat Ratio 14.4 RATIO (10-20); Calcium,Total 7.9 mg/dL (8.5-10.1); Chloride 111 mmol/L (98-107); Creatinine, Serum 0.97 mg/dL (0.70-1.30); EST Glomerular Filtration Rate 90 mL/min (>60); Est Glom Filt Rate - Afr Amer 109 mL/min (>60); Estimated Creatinine Clearance 113.26 ml/min; Globulin 3.8 g/dL (2.2-4.2); Glucose 92 mg/dL (74-106); Lipase 5656 U/L (73-393); Potassium 3.6 mmol/L (3.5-5.1); Protein, Total 6.7 g/dL (6.4-8.2); Sodium Level 143 mmol/L (136-145)
[2018-06-20] MEDS: Enoxaparin 40 MG/0.4 ML Syringe SC (08:37)
--- NOTE | 2018-06-20 09:22 | US_ITS ---
STUDY: ABDOMINAL ULTRASOUND - RIGHT UPPER QUADRANT REASON FOR VISIT: Male, 43 years old. Pancreatitis TECHNIQUE: Ultrasound evaluation of the right upper quadrant was performed with real-time and static lowe-scale imaging. TECHNICAL QUALITY: Adequate. COMPARISON: CT abdomen and pelvis 06/19/2017. FINDINGS: Liver: The liver measures 17.6 cm. Evidence of hepatic steatosis The bile ducts are within normal limits. There is hepatic color flow. The direction of portal flow is hepatopetal. There is no demonstrated mass lesion. Gallbladder: Normal distended gallbladder. The gallbladder wall measures 3.1 mm. There is a negative sonographic Patten's sign. There is no pericholecystic fluid. There are no gallstones. Common Bile Duct (C.B.D.): The common bile duct measures 2.4 mm. Pancreas: Not well characterized, ill-defined margins. No apparent ductal ectasia. Right Kidney: Normal size of the right kidney. The right kidney measures 11.5 cm. Normal renal cortex. The right cortex measures 1.7 cm. There is no demonstrated renal mass or cyst. There is no right hydronephrosis. US/Abdomen Limited IMPRESSION: Borderline gallbladder wall thickening without sonographic Patten sign or cholelithiasis. No pericholecystic fluid. Nondilated biliary tree. Electronically Signed: Carter Sorenson MD at 12:46 EDT Tel , Service support ,
[2018-06-20] MEDS: 0.9% NaCl Peripheral Flush Adult/Peds IV (11:06)
--- NOTE | 2018-06-20 12:32 | PCM.PN.HOSP ---
Patient Problems: Active and Suspected Problems Acute pancreatitis (Acute) Subjective: No abdominal pain. Has never had pancreatitis previously. Vitals/I&O's: Vital Signs Temp Pulse Resp BP Pulse Ox 36.4 C L 63 16 110/68 99 06/20/18 08:38 06/20/18 08:38 06/20/18 08:38 06/20/18 08:38 06/20/18 08:38 Oxygen Delivery Method Room Air Weight: 89.358 kg Body Mass Index (BMI) 25.9 Intake and Output for Last 24 Hours 06/18/18 06/19/18 06/20/18 23:59 23:59 23:59 Intake Total 1878 Balance 1878 General: Alert, No apparent distress HEENT: Atraumatic, Normocephalic Oral: Moist Mucosa, No Gingival or Mucosal Lesions/ Ulcerations Neck: No Nodes, Thyroid Normal Size and Texture Lungs: Clear to auscultation, Normal air movement, No rhonchi, No wheeze Cardiovascular: Regular rate, Regular Rhythm, Normal S1, Normal S2, No murmurs Abdomen: Bowel Sounds Present, Soft, Non Tender, Non-Distended, No Hepato-splenomegaly Extremities: No edema, No Calf Tenderness Skin: No rashes, No breakdown Musculoskeletal: No Tenderness to Palpation of Joints or Extremities, No Muscle Wasting Psych/Mental Status: Normal Affect, Appropriate Laboratory Results 06/19/18 14:25: WBC 14.4 H, RBC 5.45, Hgb 16.8 H, Hct 47.2, MCV 86.6, MCH 30.8, MCHC 35.6, RDW 13.4, RDW Differential 42.4, Plt Count 304, MPV 9.6, Immature Gran % (Auto) 0.200, Neut % (Auto) 88.5 H, Lymph % (Auto) 7.2 L, [place] % (Auto) 3.7, Eos % (Auto) 0.3, Baso % (Auto) 0.1, Absolute Neuts (auto) 12.8 H, Absolute Lymphs (auto) 1.04, Total Counted Not Reportable 06/19/18 14:25: Sodium 138, Potassium 3.6, Chloride 105, Carbon Dioxide 25.0, Anion Gap 8, BUN 18, Creatinine 1.30, Estim Creat Clear Calc 91.81, Est GFR (MDRD) Af Amer 78, Est GFR (MDRD) Non-Af 65, BUN/Creatinine Ratio 13.8, Glucose 122 H, Calcium 9.2, Total Bilirubin 0.60, Direct Bilirubin 0.14, AST 15, ALT 17, Alkaline Phosphatase 79, Total Protein 8.8 H, Albumin 4.2, Globulin 4.6 H, Lipase 24107 H 06/20/18 06:42: WBC 8.8, RBC 4.97, Hgb 14.5, Hct 43.4, MCV 87.3, MCH 29.2, MCHC 33.4, RDW 13.7, RDW Differential 43.0, Plt Count 264, MPV 9.7, Immature Gran % (Auto) 0.100, Neut % (Auto) 76.1 H, Lymph % (Auto) 15.3 L, [place] % (Auto) 6.9, Eos % (Auto) 1.4, Baso % (Auto) 0.2, Absolute Neuts (auto) 6.7, Absolute Lymphs (auto) 1.34, Total Counted Not Reportable 06/20/18 06:42: Sodium 143, Potassium 3.6, Chloride 111 H, Carbon Dioxide 25.0, Anion Gap 7, BUN 14, Creatinine 0.97, Estim Creat Clear Calc 113.26, Est GFR (MDRD) Af Amer 109, Est GFR (MDRD) Non-Af 90, BUN/Creatinine Ratio 14.4, Glucose 92, Calcium 7.9 L, Total Bilirubin 0.60, AST 12 L, ALT 13 L, Alkaline Phosphatase 57, Total Protein 6.7, Albumin 2.9 L, Globulin 3.8, Albumin/Globulin Ratio 0.8 L, Lipase 5656 H Current Medications Acetaminophen (Tylenol) 650 mg PO Q6H PRN PRN PRN Reason: Mild Pain (1-3)/Temp > 100.7 F Enoxaparin Sodium (Lovenox) 40 mg SC DAILY [facility] Last Admin: 06/20/18 08:37 Dose: 40 mg Sodium Chloride () 1,000 mls @ 150 mls/hr IV .Q6H40M [facility] Last Admin: 06/20/18 05:33 Dose: 150 mls/hr Pantoprazole Sodium 40 mg/ (Sodium Chloride) 110 mls @ 330 mls/hr IV Q24 [facility] Last Admin: 06/20/18 08:37 Dose: 330 mls/hr Morphine Sulfate () 1 - 2 mg IV Q4H PRN PRN PRN Reason: SEVERE PAIN (6-10/10) Last Admin: 06/19/18 23:19 Dose: 1 mg Ondansetron HCl (Zofran) 4 mg IV Q8H PRN PRN PRN Reason: NAUSEA/VOMITING Promethazine HCl (Phenergan) 6.25 mg IV Q6H PRN PRN PRN Reason: NAUSEA/VOMITING Sodium Chloride () 5 - 15 ml IV UD PRN PRN Reason: SALINE FLUSH Last Admin: 06/20/18 11:06 Dose: 10 ml Medical Necessity - Tobacco Use Smoking Status: Never smoker Tobacco Use: Cigarettes Assessment/Plan All Active Problems Acute pancreatitis (Acute) 1. acute pancreatitis improving presumably due to alcohol--advised complete cessation check US continue IVF change diet to clears follow up with GI as outpt. 2. VTE prophylaxis: LMWH. Code Visit Inpatient E&M: 78874 Subs Hosp L2
--- NOTE | 2018-06-20 12:35 | PN_ITS ---
Patient Problems: Active and Suspected Problems Acute pancreatitis (Acute) Subjective: No abdominal pain. Has never had pancreatitis previously. Vitals/I&O's: Vital Signs Temp Pulse Resp BP Pulse Ox 36.4 C L 63 16 110/68 99 06/20/18 08:38 06/20/18 08:38 06/20/18 08:38 06/20/18 08:38 06/20/18 08:38 Oxygen Delivery Method Room Air Weight: 89.358 kg Body Mass Index (BMI) 25.9 Intake and Output for Last 24 Hours 06/18/18 06/19/18 06/20/18 23:59 23:59 23:59 Intake Total 1878 Balance 1878 General: Alert, No apparent distress HEENT: Atraumatic, Normocephalic Oral: Moist Mucosa, No Gingival or Mucosal Lesions/ Ulcerations Neck: No Nodes, Thyroid Normal Size and Texture Lungs: Clear to auscultation, Normal air movement, No rhonchi, No wheeze Cardiovascular: Regular rate, Regular Rhythm, Normal S1, Normal S2, No murmurs Abdomen: Bowel Sounds Present, Soft, Non Tender, Non-Distended, No Hepato- splenomegaly Extremities: No edema, No Calf Tenderness Skin: No rashes, No breakdown Musculoskeletal: No Tenderness to Palpation of Joints or Extremities, No Muscle Wasting Psych/Mental Status: Normal Affect, Appropriate Laboratory Results 06/19/18 14:25: WBC 14.4 H, RBC 5.45, Hgb 16.8 H, Hct 47.2, MCV 86.6, MCH 30.8, MCHC 35.6, RDW 13.4, RDW Differential 42.4, Plt Count 304, MPV 9.6, Immature Gran % (Auto) 0.200, Neut % (Auto) 88.5 H, Lymph % (Auto) 7.2 L, [place] % (Auto) 3.7, Eos % (Auto) 0.3, Baso % (Auto) 0.1, Absolute Neuts (auto) 12.8 H, Absolute Lymphs (auto) 1.04, Total Counted Not Reportable 06/19/18 14:25: Sodium 138, Potassium 3.6, Chloride 105, Carbon Dioxide 25.0, Anion Gap 8, BUN 18, Creatinine 1.30, Estim Creat Clear Calc 91.81, Est GFR (MDRD) Af Amer 78, Est GFR (MDRD) Non-Af 65, BUN/Creatinine Ratio 13.8, Glucose 122 H, Calcium 9.2, Total Bilirubin 0.60, Direct Bilirubin 0.14, AST 15, ALT 17, Alkaline Phosphatase 79, Total Protein 8.8 H, Albumin 4.2, Globulin 4.6 H, Lipase 81637 H 06/20/18 06:42: WBC 8.8, RBC 4.97, Hgb 14.5, Hct 43.4, MCV 87.3, MCH 29.2, MCHC 33.4, RDW 13.7, RDW Differential 43.0, Plt Count 264, MPV 9.7, Immature Gran % (Auto) 0.100, Neut % (Auto) 76.1 H, Lymph % (Auto) 15.3 L, [place] % (Auto) 6.9, Eos % (Auto) 1.4, Baso % (Auto) 0.2, Absolute Neuts (auto) 6.7, Absolute Lymphs (auto) 1.34, Total Counted Not Reportable 06/20/18 06:42: Sodium 143, Potassium 3.6, Chloride 111 H, Carbon Dioxide 25.0, Anion Gap 7, BUN 14, Creatinine 0.97, Estim Creat Clear Calc 113.26, Est GFR (MDRD) Af Amer 109, Est GFR (MDRD) Non-Af 90, BUN/Creatinine Ratio 14.4, Glucose 92, Calcium 7.9 L, Total Bilirubin 0.60, AST 12 L, ALT 13 L, Alkaline Phosphatase 57, Total Protein 6.7, Albumin 2.9 L, Globulin 3.8, Albumin/Globulin Ratio 0.8 L, Lipase 5656 H Current Medications Acetaminophen (Tylenol) 650 mg PO Q6H PRN PRN PRN Reason: Mild Pain (1-3)/Temp > 100.7 F Enoxaparin Sodium (Lovenox) 40 mg SC DAILY [facility] Last Admin: 06/20/18 08:37 Dose: 40 mg Sodium Chloride () 1,000 mls @ 150 mls/hr IV .Q6H40M [facility] Last Admin: 06/20/18 05:33 Dose: 150 mls/hr Pantoprazole Sodium 40 mg/ (Sodium Chloride) 110 mls @ 330 mls/hr IV Q24 [facility] Last Admin: 06/20/18 08:37 Dose: 330 mls/hr Morphine Sulfate () 1 - 2 mg IV Q4H PRN PRN PRN Reason: SEVERE PAIN (6-10/10) Last Admin: 06/19/18 23:19 Dose: 1 mg Ondansetron HCl (Zofran) 4 mg IV Q8H PRN PRN PRN Reason: NAUSEA/VOMITING Promethazine HCl (Phenergan) 6.25 mg IV Q6H PRN PRN PRN Reason: NAUSEA/VOMITING Sodium Chloride () 5 - 15 ml IV UD PRN PRN Reason: SALINE FLUSH Last Admin: 06/20/18 11:06 Dose: 10 ml Medical Necessity - Tobacco Use Smoking Status: Never smoker Tobacco Use: Cigarettes Assessment/Plan All Active Problems Acute pancreatitis (Acute) 1. acute pancreatitis * improving * presumably due to alcohol--advised complete cessation * check US * continue IVF * change diet to clears * follow up with GI as outpt. 2. VTE prophylaxis: LMWH. Code Visit Inpatient E&M: 63430 Subs Hosp L2
[2018-06-20] MEDS: MELATONIN 3 MG TABLET PO (21:55)
[2018-06-21] MEDS: 0.9% Normal Saline 1,000 ML 150 ML IV (03:24)
[2018-06-21 03:44] VITALS: BP 124/54; PULSE 66; PULSE 70; RESP 18; TEMP 36.4; O2SAT 95
[2018-06-21 06:40] LABS: Anion Gap 6 (5-15); BUN 7 mg/dL (7-18); BUN/Creat Ratio 8.6 RATIO (10-20); Calcium,Total 7.7 mg/dL (8.5-10.1); Chloride 112 mmol/L (98-107); Creatinine, Serum 0.82 mg/dL (0.70-1.30); EST Glomerular Filtration Rate 110 mL/min (>60); Est Glom Filt Rate - Afr Amer 134 mL/min (>60); Estimated Creatinine Clearance 133.98 ml/min; Glucose 87 mg/dL (74-106); Lipase 2929 U/L (73-393); Potassium 3.5 mmol/L (3.5-5.1); Sodium Level 141 mmol/L (136-145)
[2018-06-21 07:59] VITALS: PULSE 69
[2018-06-21 08:38] VITALS: BP 107/76; PULSE 65; RESP 16; TEMP 37.1; O2SAT 100
--- NOTE | 2018-06-21 09:33 | PCM.DC ---
- Discharge Diagnoses Current Active Problems: Current Active and Chronic Problems Acute pancreatitis (Acute) You will use the following diet at home:: Other - bland, advance as tolerated. Drink plenty of fluids for next 48 hours (at least 2 liters/day). Discharge Activity: Return to Normal Activity Call your doctor if you observe: - - worsening abdominal pain. intractable nausea and vomiting. Allergies/Adverse Reactions: Allergies No Known Allergies Allergy (Verified 06/19/18 13:49) Medications to take at Discharge Ranitidine [Zantac] 150 mg PO DAILY 06/19/18 Primary Care Physician: Nya Acevedo MD [STAFF PHYSICIAN] - Within 2 Weeks Test Results: Test results from this visit will be discussed in further detail at your follow-up appointment, if applicable. Please Follow Up With: Cecilio Amaral MD - Gastroenterology When: 4-8 weeks, or another hosiery bagger of your choice. Proposed Discharge Date: 06/21/18
--- NOTE | 2018-06-21 09:36 | DCINST_ITS ---
- Discharge Diagnoses Current Active Problems: Current Active and Chronic Problems Acute pancreatitis (Acute) You will use the following diet at home:: Other - bland, advance as tolerated. Drink plenty of fluids for next 48 hours (at least 2 liters/day). Discharge Activity: Return to Normal Activity Call your doctor if you observe: - - worsening abdominal pain. intractable nausea and vomiting. Allergies/Adverse Reactions: Allergies No Known Allergies Allergy (Verified 06/19/18 13:49) Medications to take at Discharge Ranitidine [Zantac] 150 mg PO DAILY 06/19/18 Primary Care Physician: Nya Acevedo MD [STAFF PHYSICIAN] - Within 2 Weeks Test Results: Test results from this visit will be discussed in further detail at your follow- up appointment, if applicable. Please Follow Up With: Cecilio Amaral MD - Gastroenterology When: 4-8 weeks, or another joint cutter of your choice. Proposed Discharge Date: 06/21/18
--- NOTE | 2018-06-21 09:36 | PCM.DC.SUM ---
Discharge Date and Diagnosis - Problem List Patient Problems: Active and Suspected Problems Acute pancreatitis (Acute) Date of Admission: 06/19/18 Date of Discharge: 06/21/18 - Primary Discharge Diagnosis Active and Suspected Problems Acute pancreatitis (Acute) - Secondary Discharge Diagnosis Chronic Problems Gastroesophageal reflux disease (Chronic) Hospital Course and Treatment Imaging Results: Clinical Impression(s) from Imaging Studies Abdomen/Pelvis CT 06/19/18 15:17 IMPRESSION: Acute pancreatitis. No fluid collection or pseudocyst. Ulcer or diverticulum of the duodenum. Small hiatal hernia. Hepatomegaly. No biliary dilatation. Electronically Signed: Francesco Vera MD at 16:22 EDT , Service support , Abdomen Ultrasound 06/20/18 09:22 IMPRESSION: Borderline gallbladder wall thickening without sonographic Patten sign or cholelithiasis. No pericholecystic fluid. Nondilated biliary tree. Electronically Signed: Carter Sorenson MD at 12:46 EDT Tel , Service support , Operations: None Procedures: None Summary of Care Provided: The patient is a 43 year old M abdominal pain. Presented to the emergency room and was found to have acute pancreatitis based on CAT scan and a lipase of 18,561. Patient was started on IV fluids and was initially made n.p.o. On the , lipase was down to 5656. Started on clear diet, to which he responded well in advance to fulls later in the day. Today, his lipase is down to 2929. Patient did have a ultrasound that did not show any choledocholithiasis nor any dilation of the bile ducts. Patient does drink intermittently during the week several drinks at a time. Discussed with patient that the most likely etiology is alcohol induced and have advised complete cessation. Patient advised to follow-up with the gastroenterology to evaluate for the pink otitis and see if any additional work-up would be necessary or not. Patient given information for Dr. Amaral but patient may follow-up with whatever automatic fabric cutter he wishes. Patient is pain-free and tolerating diet which has been advanced to bland diet today. Patient instructed to start on a bland diet at home and advance as tolerated. [] Patient Problems: Active and Suspected Problems Acute pancreatitis (Acute) - Physical Exam General: Alert, No apparent distress HEENT: Atraumatic, Normocephalic Oral: Moist Mucosa, No Gingival or Mucosal Lesions/ Ulcerations Neck: No Nodes, Thyroid Normal Size and Texture Lungs: Clear to auscultation, Normal air movement, No rhonchi, No wheeze Cardiovascular: Regular rate, Regular Rhythm, Normal S1, Normal S2 Abdomen: Bowel Sounds Present, Soft, Non Tender, Non-Distended Vital Signs Temp Pulse Resp BP Pulse Ox 37.1 C 65 16 107/76 100 06/21/18 08:38 06/21/18 08:38 06/21/18 08:38 06/21/18 08:38 06/21/18 08:38 Oxygen Delivery Method Room Air Weight: 89.358 kg Body Mass Index (BMI) 25.9 Intake and Output for Last 24 Hours 06/19/18 06/20/18 06/21/18 23:59 23:59 23:59 Intake Total 4063 / 4063 1924 / 1925 Output Total 490 / 490 Balance 3573 / 3573 1924 / 1924 Laboratory Tests Past 24 Hrs 06/21/18 05:50 Sodium 141 Potassium 3.5 Chloride 112 H Carbon Dioxide 23.0 Anion Gap 6 BUN 7 Creatinine 0.82 Estim Creat Clear Calc 133.98 Est GFR (MDRD) Af Amer 134 Est GFR (MDRD) Non-Af 110 BUN/Creatinine Ratio 8.6 L Glucose 87 Calcium 7.7 L Lipase 2929 H Discharge Diet: - - no alcohol. [place], advance as tolerated. Discharge Activity: Return to Normal Activity Call your doctor if you observe: - - worsening abdominal pain. intractable nausea and vomiting. Home Medications: Medications to take at Discharge Ranitidine [Zantac] 150 mg PO DAILY 06/19/18 Primary Care Physician: Nya Acevedo MD [STAFF PHYSICIAN] - Within 2 Weeks Please Follow Up With: Cecilio Amaral MD - Gastroenterology When: 4-8 weeks, or another automatic fabric cutter of your choice. Disposition: Home Minutes spent on discharge:: 28 Patient Condition:: Good Medical Necessity - Tobacco Use Smoking Status: Never smoker Tobacco Use: Cigarettes Meaningful Use Info Meaningful Use Diagnoses (Choose all that apply): None applicable Code Visit Inpatient E&M: 05555 Disch Hosp
--- NOTE | 2018-06-21 09:41 | DS.PCM_ITS ---
Discharge Date and Diagnosis - Problem List Patient Problems: Active and Suspected Problems Acute pancreatitis (Acute) Date of Admission: 06/19/18 Date of Discharge: 06/21/18 - Primary Discharge Diagnosis Active and Suspected Problems Acute pancreatitis (Acute) - Secondary Discharge Diagnosis Chronic Problems Gastroesophageal reflux disease (Chronic) Hospital Course and Treatment Imaging Results: Clinical Impression(s) from Imaging Studies Abdomen/Pelvis CT 06/19/18 15:17 IMPRESSION: Acute pancreatitis. No fluid collection or pseudocyst. Ulcer or diverticulum of the duodenum. Small hiatal hernia. Hepatomegaly. No biliary dilatation. Electronically Signed: Francesco Vera MD at 16:22 EDT , Service support , Abdomen Ultrasound 06/20/18 09:22 IMPRESSION: Borderline gallbladder wall thickening without sonographic Patten sign or cholelithiasis. No pericholecystic fluid. Nondilated biliary tree. Electronically Signed: Carter Sorenson MD at 12:46 EDT Tel , Service support , Operations: None Procedures: None Summary of Care Provided: The patient is a 43 year old M abdominal pain. Presented to the emergency room and was found to have acute pancreatitis based on CAT scan and a lipase of 18,561. Patient was started on IV fluids and was initially made n.p.o. On the , lipase was down to 5656. Started on clear diet, to which he responded well in advance to fulls later in the day. Today, his lipase is down to 2929. Patient did have a ultrasound that did not show any choledocholithiasis nor any dilation of the bile ducts. Patient does drink intermittently during the week several drinks at a time. Discussed with patient that the most likely etiology is alcohol induced and have advised complete cessation. Patient advised to follow-up with the gastroenterology to evaluate for the pink otitis and see if any additional work-up would be necessary or not. Patient given information for Dr. Amaral but patient may follow-up with whatever ichthyologist he wishes. Patient is pain-free and tolerating diet which has been advanced to bland diet today. Patient instructed to start on a bland diet at home and advance as tolerated. [] Patient Problems: Active and Suspected Problems Acute pancreatitis (Acute) - Physical Exam General: Alert, No apparent distress HEENT: Atraumatic, Normocephalic Oral: Moist Mucosa, No Gingival or Mucosal Lesions/ Ulcerations Neck: No Nodes, Thyroid Normal Size and Texture Lungs: Clear to auscultation, Normal air movement, No rhonchi, No wheeze Cardiovascular: Regular rate, Regular Rhythm, Normal S1, Normal S2 Abdomen: Bowel Sounds Present, Soft, Non Tender, Non-Distended Vital Signs Temp Pulse Resp BP Pulse Ox 37.1 C 65 16 107/76 100 06/21/18 08:38 06/21/18 08:38 06/21/18 08:38 06/21/18 08:38 06/21/18 08:38 Oxygen Delivery Method Room Air Weight: 89.358 kg Body Mass Index (BMI) 25.9 Intake and Output for Last 24 Hours 06/19/18 06/20/18 06/21/18 23:59 23:59 23:59 Intake Total 4063 / 4063 1924 / 1925 Output Total 490 / 490 Balance 3573 / 3573 1924 / 1924 Laboratory Tests Past 24 Hrs 06/21/18 05:50 Sodium 141 Potassium 3.5 Chloride 112 H Carbon Dioxide 23.0 Anion Gap 6 BUN 7 Creatinine 0.82 Estim Creat Clear Calc 133.98 Est GFR (MDRD) Af Amer 134 Est GFR (MDRD) Non-Af 110 BUN/Creatinine Ratio 8.6 L Glucose 87 Calcium 7.7 L Lipase 2929 H Discharge Diet: - - no alcohol. Stan[place], advance as tolerated. Discharge Activity: Return to Normal Activity Call your doctor if you observe: - - worsening abdominal pain. intractable nausea and vomiting. Home Medications: Medications to take at Discharge Ranitidine [Zantac] 150 mg PO DAILY 06/19/18 Primary Care Physician: Nya Acevedo MD [STAFF PHYSICIAN] - Within 2 Weeks Please Follow Up With: Cecilio Amaral MD - Gastroenterology When: 4-8 weeks, or another ichthyologist of your choice. Disposition: Home Minutes spent on discharge:: 28 Patient Condition:: Good Medical Necessity - Tobacco Use Smoking Status: Never smoker Tobacco Use: Cigarettes Meaningful Use Info Meaningful Use Diagnoses (Choose all that apply): None applicable Code Visit Inpatient E&M: 98861 Disch Hosp
[2018-06-21] MEDS: Enoxaparin 40 MG/0.4 ML Syringe SC (09:49)
== END 2018-06-21 11:23 | disposition home or self-care (01) | DRG 440 ==
LOC: ED 15:13 → MS3 15:56
PROVIDERS: Admitting Provider Hospitalist; Emergency Provider Emergency Medicine; Referring Provider Hospitalist
DX: K85.90 Acute pancreatitis without necrosis or infection, unspecified (principal); K21.9 Gastro-esophageal reflux disease without esophagitis
CPT/HCPCS: 36415; 74177; 76705; 80048; 80053; 80076; 83690; 85025; 99282; J7030; Q9967; A4216; J2405

== ENCOUNTER 2020-01-28 08:30 | Outpatient (RCR) | payer BC, SELFPAY ==
--- NOTE | 2019-12-31 09:46 | HP.PTEVAL ---
Patient's Visit Information LISA SAMAYOA is a 44 year old M referred to Physical Therapy by Dr. Mark Morales MD with a diagnosis of Right LE Radiculopathy. Date of Evaluation: 12/30/19 Physical Therapist: Kendra Maya DPT - Visit Plan Frequency: 2x /Week Duration: 4 Weeks Plan: Left Shift- prone decreases symptoms - Subjective Patient reports back pain on/off for the last 4 years- has had chiro adjustments. 2 years ago had sciatica problems and it happens about once a year- steroid about 1x a year. 2 weeks ago had another flare up- had steroid got better- went to [facility] but it was not as bad and he has an MRI scheduled Jan 09 and goes to see the Chiro tomorrow. This pain has been going on for about about 5 days. He is currently on the peak of being bad- he has had steroid and its not helping. The pain is in the hamstring of the right and is now radiating to the calf in the past 24 hours. Describes the pain the calf is more dull and achy. When he gets up/down its more sharp. No N/T. Normally fully I with all ADL's. He has not been stretching or back to his old routine. No pains down the left lower extremity. No back pain. No knee problems or buckling. Best: 0/10 Eases: Advil, Tramadol. Worst: 9/10. Agg: getting up after sitting, standing. Sleep: last night was okay- but has had problems sleeping before- Right or left side sleeper. PMHx: acute pancreatitis, appendix 2006 Meds: cholesterol meds, titophil. Work: sitting mainly at a desk- but does have the ability to get up and move around- no heavy lifting. - Objective Posture:significant left shift of the lumbar spine. Gait: antalgic- decreased stance on the left LE with toes turned out to the side. HR/TR: able with UE A. SLS: 30 sec without LOB. ROM: Lumbar: flexion: hands to knees, Extn: neutral, SB: WFL pain with SB to the Rotation: WNL pain with rotation to the right. Hip: WFL, Knee/ANkle: WFL. Sensation: WNL to gross touch bilateral LE. Reflex: hyper- reflexive patella on the right. Strength: core: poor, hip: 4/5 throughout with pain, Knee: 5/5, Ankle: 5/5- pain with all testing. Flex: HS: severe, Gastroc: severe. Special Test: Dural signs: positive bilateral, Slump: positive bilateral, SLR: positive bilateral, Prone prop: diminishes symtoms down right LE but does not abolish, C-shape prone: increases s/s in calf, Standing glides: increase s/s down right LE,. Palpatoin: tender throughout right glut and down the hamstring to the calf. Throughout testing patient very painful and all movement radiated pain down the right LE - Goals Goal 1:: Patient will be I with HEP and progression Goal Time Frame: 4-6 Weeks Goal 2:: Patient will report no s/s down the right LE Goal Time Frame: 4-6 Weeks Goal 3:: Patient will ambulate >300 feet with a normalized gait pattern Goal 4:: Patient will stand with no shift for 3 min without pain in right LE Goal Time Frame: 4-6 Weeks - Rehabilitation Potential Physical Therapy Diagnosis: Patient presents with hypmobility- he has significant disability at this time- he has decreased ROM, strength, flex and muscular endurance leading to poor posture and increased pain with all ADL's. Rehabilitation Potential: Fair - Anticipated Interventions Patient/Client Instruction: Educate patient on: Benefits of Fitness Program Therapeutic Exercise to Include: Strength training, Endurance training, Balance training, Agility training, Body mechanics, Postural training, Flexibilty training, Gait and locomotor training, Neuromotor development, Passive ROM, Active ROM, Dynamic Lumbar Stabilization, Allen Exercises, Scapular Strength/Stabilization TENS: Yes Cryotherapy (ice pack, ice massage): Yes Thermo therapy (hot pack): Yes Ultrasound (thermal/non thermal): Yes Thank you for the opportunity to evaluate your patient. For Medicare and Medicare HMO plans, please review the plan of care and approve it. It will need to be FAXED BACK to us at [phone] for Medicare purposes. For Medicare only, by signing this I certify the plan of care. Please let me know if there are questions or concerns regarding this plan of care. Physician Signature: Date:
--- NOTE | 2020-01-28 09:08 | HP.PTDCSUM ---
It has been my pleasure to treat LISA SAMAYOA referred by Dr. Mark Morales MD, with the diagnosis of Right LE Radiculopathy for a total of 7 visit(s). Discharge Date: 01/28/20 Please see the following information for a summary of their discharge status. Subjective: Patient had epidural injection 2nd. doing alot better min pain Right Lower Extremity Pain Intensity (Out of 10): 1 % Improvement: 95 Objective/Function: POSTURE: IMPROVE SHIFT DEFORMITY MILD. GAIT: RECIPROCAL PATTERN WITH MIDL SHIFT DEFORMITY. NEURO: DENIES PARATHEISA ,REFLEXES INTACT. MMT: 4/5 HIP 4-/5. LUMBAR ROM: FLEXION MOD LOSS,EXTENSION MOD LOSS Goal 1:: Patient will be I with HEP and progression Goal Progress: Goal Met Goal 2:: Patient will report no s/s down the right LE Goal Progress: Goal Met Goal 3:: Patient will ambulate >300 feet with a normalized gait pattern Goal Progress: Goal Met Goal 4:: Patient will stand with no shift for 3 min without pain in right LE Goal Progress: Goal Met Plan: D/C Discharge Comments: HEP If there are questions or concerns regarding this patient's physical therapy, please feel free to call me at [phone]. Thank you for the referral of this patient. Sincerely, Cristian Pulido PT, Cert MDT, OCS
== END 2020-02-05 16:21 | disposition home or self-care (01) ==
LOC: PT 08:30
PROVIDERS: Referring Provider Orthopaedic Surgery Orthopaedic Surgery of the Spine; Visit Provider Orthopaedic Surgery Orthopaedic Surgery of the Spine
DX: M54.16 Radiculopathy, lumbar region (principal)
CPT/HCPCS: 97014; 97035; 97162; 97530; G0283

== ENCOUNTER 2020-09-15 14:43 | Emergency (ER) | payer BC, SELFPAY ==
[2020-09-15 14:44] VITALS: BP 132/80; PULSE 58; RESP 16; TEMP 36.8; O2SAT 99; BMI 29.0
--- NOTE | 2020-09-15 14:51 | RAD_ITS ---
STUDY: X-RAY CHEST REASON FOR EXAM: Male, 45 years old. Sudden onset of chest pain. TECHNIQUE: Single AP portable view of the chest. COMPARISON: Comparison is made with prior study of 06/19/2017. FINDINGS: EKG electrodes are seen. The lungs are clear and expanded. There is no demonstrated pleural abnormality. Normal size heart. Normal mediastinum and nixon. Normal visualized pulmonary arteries. Normal visualized aortic arch and descending thoracic aorta. Normal visualized thoracic spine. Normal visualized ribs, clavicles, and shoulders. There is no demonstrated abnormality of the visualized soft tissue structures of the upper abdomen. RAD/Chest 1 View (Portable) IMPRESSION: Normal x-ray examination of the chest. Electronically Signed: Abebe Antoine MD at 15:17 EDT , Service support ,
--- NOTE | 2020-09-15 14:51 | EKG12_ITS ---
Test Reason : REPEAT Blood Pressure : / mmHG Vent. Rate : 068 BPM Atrial Rate : 068 BPM P-R Int : 206 ms QRS Dur : 094 ms QT Int : 408 ms P-R-T Axes : 053 037 055 degrees QTc Int : 433 ms Normal sinus rhythm Normal ECG Confirmed by TAMIR CROWLEY, MINERVA ([id number]), editorial writer CK ESQUIVEL ([id number]) on 09/18/2020 9:15:58 AM Referred By: TIO Confirmed By:HETAL GARNETT MD
--- NOTE | 2020-09-15 14:57 | EDS_ITS ---
HPI History of Present Illness Chief Complaint: Chest Pain Informant: patient Onset/Context/Timing Onset: Today and Hours Activity at onset: gradual Timing: Continuous Quality: Positive for Dull, Heaviness and Indigestion Location: Substernal Current Severity: Gone Maximum Severity: Mild Worsened By: Nothing Relieved By: Nothing Associated Symptoms: Positive for Acid Reflux; Negative for Nausea, Vomiting, Diaphoresis, Dyspnea, Cough, Fever, Lightheadedness and Palpitations Narrative Prior Similar Symptoms: No Recent Illness/Hospitalization: No CVD Risk Factors: Positive for Hypercholesterolemia, Family History 1' </=55 and Smoking; Negative for Hypertension and Diabetes PE Risk Factors: Negative for Recent Travel/Surgery, Recent Immobilization, Prior DVT or PE, Cancer and OCP + Smoking + >/=35 TAD Risk Factors: Negative for Marfan's Syndrome and Hypertension PFSH PFSH Home Medications lansoprazole 30 mg PO DAILY 09/15/20 [History Last Taken Unknown] rosuvastatin 5 mg PO DAILY 09/15/20 [History Last Taken Unknown] tadalafil 10 mg PO DAILY 09/15/20 [History Last Taken Unknown] Allergy/AdvReac Type Severity Reaction Status Date / Time No Known Allergies Allergy Verified 09/15/20 14:45 Social History Smoking Status: Never smoker ROS ROS ED ROS Narrative 45-year-old male denies recent illness. Review of Systems ROS Unobtainable: Denies due to encephalopathy Constitutional Constitutional ED: Denies chills or fever(s) Eyes Eyes: Denies none ENT ENT ED: Denies ear pain or sore throat Cardiovascular Cardiovascular: Reports as per HPI and chest pain; Denies palpitations or racing heartbeat Respiratory/Chest Respiratory/Chest: Denies cough, dyspnea or sputum Gastrointestinal Gastrointestinal: Denies abdominal pain, diarrhea, nausea or vomiting Genitourinary Genitourinary ED: Denies dysuria or hematuria Musculoskeletal Musculoskeletal: Denies myalgias Integumentary Denies rash Neurologic Neurologic: Denies headache(s) Psychiatric Psychiatric: Denies depression Endocrine Endocrinology: Denies polyuria Hematologic/Lymphatic Hematologic/Lymphatic: Denies easy bruising Allergic/Immunologic Allergic/Immunologic ED: Denies urticaria EXAM Physical Exam Narrative Exam Narrative: 45 yo male no acute distress vital signs stable afebrile. Has also has known emphysema mental signs hypoxia. Pressure 132/80. HEENT exam normal. Neck nontender no lymphadenopathy. Trachea midline. Lungs are auscultation bilaterally. Heart regular rhythm rate 60 no murmur. Chest wall nontender. Abdomen soft nontender normal bowel sounds no peritoneal signs. Patient moving all 4 extremities. Equal symmetrical radial pulses. Calves are nontender without edema or cords. Const Vital Signs: 09/15/20 14:44 09/15/20 14:47 09/15/20 14:55 Temperature 98.3 F Temperature Source Oral Pulse Rate 58 L Respiratory Rate 16 Respiratory Effort Normal Non-Labored Blood Pressure 132/80 H Blood Pressure Mean 97 Pulse Ox 99 Oxygen Delivery Method Room Air Room Air 09/15/20 15:44 Temperature Temperature Source Pulse Rate 63 Respiratory Rate 13 Respiratory Effort Blood Pressure 124/81 H Blood Pressure Mean 95 Pulse Ox 98 Oxygen Delivery Method Room Air Positive well nourished and well developed; Negative for obese, cachectic, contractures or unkempt General Appearance ED: well developed and NAD; Negative for unkempt, cachectic, contractures or pallor Nutritional Appearance: Negative for cachectic or obese HEENT Reports moist mucous membranes normocephalic and atraumatic; Negative for trauma or tenderness Eyes PERRL and EOMs intact bilaterally Neck no lymphadenopathy, supple and no JVD General: Negative for tenderness Chest Wall inspection of chest normal and palpation of chest normal Resp normal respiratory effort and clear to auscultation bilaterally Effort and Inspection: respiratory distress Auscultation: Negative for rales, rhonchi or wheezes Cardio regular rate, regular rhythm, S1 normal heart sound, S2 normal heart sound and no murmurs Rate: Negative for bradycardia or tachycardic GI normal to inspection, nondistended, normoactive bowel sounds, soft to palpation, non-tender, non-distended and no masses Back/Spine no CVA tenderness Extremity normal to inspection General Extremety ED: Negative for edema, pulses abnormal or tenderness General Extremity: Negative for edema or pulses abnormal Neuro oriented x3 and CN's II-XII intact bilaterally Sensorium / Orientation: awake, alert, oriented to person, oriented to place and oriented to time Motor Exam: strength 5/5 throughout Psych mental status grossly normal Appearance: Negative for unkempt Skin no rashes or lesions noted and no wounds General Skin Exam: Negative for jaundice or pallor Heart Score History: Slightly/Non-Suspicious ECG: Normal Age: </= 45 years Risk Factors: 1 or 2 Risk Factors Troponin: </= Normal Limit Score: 1 MDM MDM MDM Narrative Medical decision making narrative: Middle-age male atypical midsternal chest pain without radiation or associated symptoms. Occurred at rest while he was driving. Lasted 20 to 30 minutes and has since resolved. No recent exertional chest pain or dyspnea. He does have a sister who had coronary artery disease at 50 and had a stent. He does not smoke cigarettes he smokes some cigars in the past. He had a negative stress test 10 years ago. He has had no recent travel, surgery or immobilization. No leg pain or swelling. No pleuritic pain. No hemoptysis. Patient will undergo cardiac work-up but given aspirin. Work-ups negative. Repeat exam at 4 PM patient clinically looks good he is completely symptom-free. We went over all his test results. I will get a second EKG if that is good he will be discharged to home. His uncle is his primary care physician out of [place] he will follow up with him and get an outpatient stress test. Patient sister did have coronary disease at 50 years old and had to have a stent. I told him we should be cautious with this and give him stress testing. He understands. Lab Data Attestation: I reviewed the patient's lab results. Lab results narrative: CBC shows a white count of 6 hemoglobin 15. Electrolytes unremarkable gap 7. Creatinine 1.1. High-sensitivity troponin III and lipase normal 162. Labs: Laboratory Results - last 24 hr 09/15/20 09/15/20 09/15/20 14:45 14:45 14:45 WBC 6.2 RBC 5.33 Hgb 15.9 Hct 47.9 MCV 89.9 MCH 29.8 MCHC 33.2 RDW Std Deviation 42.8 RDW Coeff of August 13.0 Plt Count 275 MPV 9.5 Immature Gran % (Auto) 0.200 Neut % (Auto) 47.5 Lymph % (Auto) 34.6 Starke % (Auto) 9.6 Eos % (Auto) 7.0 H Baso % (Auto) 1.1 H Absolute Neuts (auto) 2.9 Absolute Lymphs (auto) 2.13 Nucleated RBC % 0 Sodium 136 Potassium 3.6 Chloride 100 Carbon Dioxide 29.0 Anion Gap 7 BUN 14 Creatinine 1.14 Estim Creat Clear Calc 91.71 Est GFR (MDRD) Af Amer 90 Est GFR (MDRD) Non-Af 74 BUN/Creatinine Ratio 12.3 Glucose 105 Calcium 9.2 Troponin I High Sens 3.0 Lipase 162 Radiography Chest X-Ray - ED: 1 View, Read by ED Physician, Heart, Lungs, Mediastinum, Bony Structures and No Acute Disease Diagnostic Testing: Radiology Impression Chest X-Ray 09/15/20 14:51 IMPRESSION: Normal x-ray examination of the chest. Electronically Signed: Abebe Antoine MD at 15:17 EDT , Service support , Portable chest x-ray interpreted by myself and radiologist shows no acute abnormality. Normal cardiac silhouette and mediastinum. Rhythm Strip Rhythm Strip: Sinus Rhythm Rate: 57 Ectopy: None EKG Initial EKG: Attestation: I personally reviewed and interpreted this EKG as follows: Interpretation: Sinus Rhythm, No Acute Injury Pattern, Sinus Bradycardia and AV Block Comments: Sinus bradycardia rate of 57 no acute signs of [place] or ischemia first-degree AV block. Discharge Plan Triage Chief Complaint: Chest Pain ED Provider: Joel Lezama Dx/Rx/DC Orders Clinical Impression: Chest pain in adult Instructions: ED Chest Pain, Uncertain Cause Prescriptions: No Action lansoprazole 30 mg capsule,delayed release(DR/EC) 30 mg PO DAILY RF: 0 rosuvastatin 5 mg tablet 5 mg PO DAILY RF: 0 tadalafil 10 mg tablet 10 mg PO DAILY RF: 0 Referrals: BOLA LEGGETT [Other] Activity Restrictions/Additional Instructions: Call and follow-up with your primary care physician by tomorrow. Get set up for an outpatient stress test just to be cautious with your sister's recent history. Return if feeling worse. Call me if you need any help getting outpatient stress test set up here at [facility]. Disposition Disposition: Home, Self Care
[2020-09-15 14:58] LABS: Absolute Lymphocyte Count 2.13 X10^3/uL (0.83-4.51); Absolute Neutrophil Count 2.9 X10^3/uL (2.0-7.7); Basophil# 0.07 X10^3/uL; Basophil% 1.1 % (0-1); Eosinophil# 0.43 X10^3/uL; Hematocrit 47.9 % (40-54); Hemoglobin 15.9 g/dL (13.0-16.5); Lymphocyte # 2.13 X10^3/ul (0.83-4.51); Lymphocyte % 34.6 % (19-41); Mean Corp Hgb Conc 33.2 g/dL (32-36); Mean Corpuscular Hgb 29.8 pg (27.0-32.0); Mean Corpuscular Volume 89.9 fL (80-94); Mean Platelet Vol. 9.5 fl (6.2-12.0); Monocyte# 0.59 X10^3/uL; Monocyte% 9.6 % (0-10); NRBC Flagged by Analyzer 0 % (0-5); Neutrophil # 2.92 X10^3/uL (2.7-7.7); Neutrophil % 47.5 % (47-70); Platelet Count 275 K/mm3 (150-450); RBC Distribution Width SD 42.8 fl (35.1-43.9); Red Blood Count 5.33 M/mm3 (4.6-6.2); White Blood Count 6.2 K/mm3 (4.4-11.0)
[2020-09-15 15:14] LABS: Anion Gap 7 (5-15); BUN 14 mg/dL (7-18); BUN/Creat Ratio 12.3 RATIO (10-20); Calcium,Total 9.2 mg/dL (8.5-10.1); Chloride 100 mmol/L (98-107); Creatinine, Serum 1.14 mg/dL (0.70-1.30); EST Glomerular Filtration Rate 74 mL/min (>60); Est Glom Filt Rate - Afr Amer 90 mL/min (>60); Estimated Creatinine Clearance 91.71 ml/min; Glucose 105 mg/dL (74-106); Potassium 3.6 mmol/L (3.5-5.1); Sodium Level 136 mmol/L (136-145)
[2020-09-15 15:18] LABS: Lipase 162 U/L (73-393)
[2020-09-15 15:44] VITALS: BP 124/81; PULSE 63; RESP 13; O2SAT 98
[2020-09-15] MEDS: Aspirin 81 MG TAB.CHEW 324 MG PO (15:44)
--- NOTE | 2020-09-15 16:00 | EKG12_ITS ---
Test Reason : CP Blood Pressure : / mmHG Vent. Rate : 057 BPM Atrial Rate : 057 BPM P-R Int : 216 ms QRS Dur : 098 ms QT Int : 416 ms P-R-T Axes : 048 040 059 degrees QTc Int : 404 ms Sinus bradycardia with 1st degree A-V block Otherwise normal ECG Confirmed by TAMIR CROWLEY, MINERVA ([id number]), commercial production editor CK ESQUIVEL ([id number]) on 09/18/2020 9:22:31 AM Referred By: TIO
[2020-09-15 16:02] VITALS: BP 133/87; PULSE 63; RESP 13; O2SAT 93
[2020-09-15 16:37] VITALS: BP 131/79; PULSE 62; RESP 16; O2SAT 98
== END 2020-09-15 16:37 | disposition home or self-care (01) ==
PROVIDERS: Emergency Provider Emergency Medicine
DX: R07.9 Chest pain, unspecified (principal); R00.1 Bradycardia, unspecified; Z79.899 Other long term (current) drug therapy
CPT/HCPCS: 71045; 80048; 83690; 84484; 85025; 93005; 99285; A4216

== ENCOUNTER 2022-01-26 13:00 | Outpatient (RCR) | payer BC, SELFPAY ==
--- NOTE | 2021-12-21 10:23 | HP.PTEVAL_ITS ---
Patient's Visit Information LISA SAMAYOA is a 46 year old M referred to Physical Therapy by Dr. Mark Morales MD with a diagnosis of LUMBAR RADICULOPATHY. Date of Evaluation: 12/21/21 Physical Therapist: Cristian Pulido, PT, Cert MDT, OCS - Visit Plan Frequency: 2x /Week Duration: 4 Weeks Plan: PT INTERVETIONS AQAUTIC THERAPY FOR LUMBAR ROM ,LE FLEXABLITY ,DLS ,POSTURAL EX'S AND STRENGTHENING - Subjective This 46 y/o male presents to physical therapy with lumbar radiculopathy left lower extremity. Patient has had episode of lumbar radiculopathy for ~ 3 weeks ,. Initially , symptoms minor but progressively was intermittent with past week symptoms where more intense. Patient seen spine surgeon recommended PT prescribed tramadol and plan to do prednisone. Patient sees pain management had epidural injection which helped for a few days although pain return. Patient has no back pain just hamstrings and occasional calf symptoms. Patient has h/o lumbar radiculopathy 2020 had PT and MRI showed HNP. Aggravating bending ,lifting ,walking and standing occasional sitting AM is the worst . Alleviating factors medications ,rest. Patient seen chiropractor. Coughing /sneezing -. C/O paresthesia/tingling in legs . Bowel/bladder-. Patient pain affects QOL and function. Patient had x-rays. Patient plans to have MRI. SOCAIL: . VOCATION: OWN Business - Pain Left Lower Extremity Pain Intensity (Out of 10): 9 Pain Intensity Range: 10 Comment: non MEDS ,with meds 3/10 - Objective POSTURE: mild forward posture. NEURO: c/o paresthesia/tingling left leg ,reflexes L3-4,L4-5.L5-S1 1/3. PALPATION: unremarkable. SYMTTRIES: align. FLEXABLITY: hamstrings severe tight with ANR LEFT. ANR: + left lower extremity. LUMBAR ROM: flexion severe loss ,extension mod/severe ,side glides mod. MMT: peak force - quads left 12.8 ,right 22.9 ,hamstrings 4/5 ,hip flexion 4/5 ,ankle ,GTE 5/5. GAIT: ambulated with slight decrease time LLE reciprocal pattern - Special Tests L/S Slump test left side: Positive L/S Slump test right side: Negative L/S Left Straight Leg Raise: Positive L/S Right Straight Leg Raise: Negative Lumbar Standing: Flexion - Mechanical Response: No effect Lumbar Standing: Flexion - Symptoms During Testing: Increases Lumbar Standing: Flexion - Symptoms After Testing: Worse Comments:: hamstrings Lumbar Standing: Extension - Mechanical Response: No effect Lumbar Standing: Extension - Symptoms During Testing: Decreases Lumbar Standing: Extension - Symptoms After Testing: No better Lumbar Standing: Right Side Glides - Mechanical Response: No effect Lumbar Standing: Right Side [place] - Symptoms During Testing: No effect Lumbar Standing: Right Side [place] - Symptoms After Testing: No effect Lumbar Standing: Left Side [place] - Mechanical Response: No effect Lumbar Standing: Left Side [place] - Symptoms During Testing: No effect Lumbar Standing: Left Side [place] - Symptoms After Testing: No effect Lumbar Static: Slouched Sit - Mechanical Response: No effect Lumbar Static: Slouched Sit - Symptoms During Testing: Increases Lumbar Static: Slouched Sit - Symptoms After Testing: Worse Lumbar Static: Sitting Erect - Mechanical Response: No effect Lumbar Static: Sitting Erect - Symptoms During Testing: Decreases Lumbar Static: Sitting Erect - Symptoms After Testing: Better Lumbar Static:Lying Prone in Extension - Mechanical Response: No effect Lumbar Static: Lying Prone in Extension - Sx During Testing: Increases Lumbar Static: Lying Prone in Extension - Sx After Testing: Worse Comments:: hamstrings - Balance/Special Test Scores Oswestry Low Back Score: 31 - Goals Goal 1:: I with HEP for back Goal Time Frame: 4-6 Weeks Goal 2:: Patient improve posture/body mechanics 90% of the time. Goal Time Frame: 4-6 Weeks Goal 3:: Patient to demonstrate 50 % improvement nahum improve function and ADLS' Goal Time Frame: 4-6 Weeks Goal 4:: Patient to resolve ANR to improve function and ADLS's Goal Time Frame: 4-6 Weeks Goal 5:: Patient to improve lumbar ROM for function of recovery to tie showed Goal Time Frame: 4-6 Weeks Goal 6:: Patient to improve back oswestry score by 5 points to improve QOL Goal Time Frame: 4-6 Weeks - Rehabilitation Potential Physical Therapy Diagnosis: This patient has lumbar radiculopathy left with possible HNP with h/o HNP right side 2020 with current pain with left leg with pain during position, motion testing ,with + SLR ,ANR impairs walking/standing and job demands thus benefit from skilled PT Rehabilitation Potential: Good - Anticipated Interventions Patient/Client Instruction: Educate patient on: Condition, Plan of Care For the Purpose of:: To decrease pain, To increase ROM, To improve muscle performance and motor function, To improve ability to perform ADL's, To increase tolerance to activity/condition/position, To improve performance and independence with ADL's, To improve ability of physical actions for home/community/work/leisure, To improve health of tissue, To decrease soft tissue restriction, To increase flexibility/ROM, To prevent re-injury Therapeutic Exercise to Include: Strength training, Endurance training, Balance training, Body mechanics, Postural training, Flexibilty training, In an aquatic setting, Dynamic Lumbar Stabilization, Allen Exercises Comment: BLE For the Purpose of:: To decrease pain, To increase ROM, To improve muscle performance and motor function, To improve ability to perform ADL's, To increase tolerance to activity/condition/position, To improve ability of physical actions for home/community/work/leisure, To improve health of tissue, To decrease soft tissue restriction, To increase flexibility/ROM Thank you for the opportunity to evaluate your patient. For Medicare and Medicare HMO plans, please review the plan of care and approve it. It will need to be FAXED BACK to us at [phone] for Medicare purposes. For Medicare only, by signing this I certify the plan of care. Please let me know if there are questions or concerns regarding this plan of care. Physician Signature: Date:
--- NOTE | 2022-06-09 14:44 | HP.PT.NRP ---
LISA SAMAYOA was seen in my office for initial evaluation on 12/21/21. The following Plan of Care was established for this patient: Initial Frequency: 2x /Week Initial Duration: 4 Weeks Patient/Client Instruction: Educate patient on: Condition, Plan of Care For the Purpose of:: To decrease pain, To increase ROM, To improve muscle performance and motor function, To improve ability to perform ADL's, To increase tolerance to activity/condition/position, To improve performance and independence with ADL's, To improve ability of physical actions for home/community/work/leisure, To improve health of tissue, To decrease soft tissue restriction, To increase flexibility/ROM, To prevent re-injury Therapeutic Exercise to Include: Strength training, Endurance training, Balance training, Body mechanics, Postural training, Flexibilty training, In an aquatic setting, Dynamic Lumbar Stabilization, Allen Exercises For the Purpose of:: To decrease pain, To increase ROM, To improve muscle performance and motor function, To improve ability to perform ADL's, To increase tolerance to activity/condition/position, To improve ability of physical actions for home/community/work/leisure, To improve health of tissue, To decrease soft tissue restriction, To increase flexibility/ROM This patient was last seen in our office . Pertinent comments regarding their Physical therapy will appear below: Patient seen for Aquatic Therapy for lumbar radiculopathy focusing on DLS and postural ex's ,doing better thus d/c At this point I will be discontinuing this patient from physical therapy. I would be happy to see this patient again in the future if found appropriate by the physician. Thank you! Cristian Pulido, PT, Cert MDT, OCS Balance/Gait/Functional tests - Balance/Special Test Scores Oswestry Low Back Score: 5
== END 2022-01-26 19:00 | disposition home or self-care (01) ==
LOC: PT 13:00
PROVIDERS: Referring Provider Orthopaedic Surgery Orthopaedic Surgery of the Spine; Visit Provider Orthopaedic Surgery Orthopaedic Surgery of the Spine
DX: M54.16 Radiculopathy, lumbar region (principal)
CPT/HCPCS: 97110; 97113; 97161